=== PATIENT | female | born 1960 | race Caucasian/White ===

== ENCOUNTER 2020-08-25 20:51 | Observation (INO) | payer BC, OTHER ==
[~2020-08-25] VITALS: Ht 160 cm; Wt 56.3 kg
[2020-08-25 20:55] VITALS: BP 153/69
[2020-08-25 21:22] VITALS: BP 135/61
[2020-08-25 21:28] LABS: BASOPHILS % (AUTO) 0.8 % (0.0-5.0); EOSINOPHILS % (AUTO) 1.7 % (0.0-8.0); HEMATOCRIT 41.9 % (36-48); LYMPHOCYTES % (AUTO) 23.8 % (21.0-51.0); MEAN CORPUSCULAR HGB CONC 33.4 g/dL (32.0-36.0); MEAN CORPUSCULAR VOLUME 92.9 fL (79-99); MONOCYTES % (AUTO) 10.6 % (3.0-13.0); NEUTROPHILS % (AUTO) 62.6 % (40.0-77.0); PLATELET COUNT (AUTO) 242 K/uL (130-400); RED BLOOD CELL COUNT(AUTO) 4.51 MIL/uL (4.00-5.50); RED CELL DISTRIBUTION WIDTH 13.2 % (11.0-15.5)
[2020-08-25 21:38] LABS: CREATININE 0.9 mg/dL (0.5-1.5); POTASSIUM 3.5 mmol/L (3.5-5.1)
[2020-08-25 21:40] LABS: INR 0.97 (0.85-1.15); PROTHROMBIN TIME 10.6 SEC (9.6-11.6)
[2020-08-25 21:41] LABS: PARTIAL THROMBOPLASTIN TIME 24.8 SEC (26.3-35.5)
[2020-08-25 21:45] LABS: ALBUMIN 4.4 g/dL (3.5-5.0); BILIRUBIN,TOTAL 0.6 mg/dL (0.2-1.0); TOTAL PROTEIN, SERUM 7.7 g/dL (6.0-8.3)
[2020-08-25 21:56] LABS: B-TYPE NATRIURETIC PEPTIDE 20 pg/mL (0-100)
[2020-08-25 22:39] VITALS: BP 119/71
[2020-08-25 22:43] VITALS: BP 113/65
[2020-08-25] MEDS ORDERED: ASPIRIN 325MG EC TAB PO ONE (23:00)
[2020-08-25] MEDS: 0.9%NACL 1000ML 1,000 ML IV SCH (23:20)
[2020-08-25] MEDS ORDERED: ATORVASTATIN 10 MG TABLET ONE (23:21)
[2020-08-25 23:28] LABS: APPEARANCE,URINE Clear (CLEAR); BILIRUBIN,URINE Negative (NEGATIVE); COLOR,URINE Yellow (YELLOW); GLUCOSE, URINE (UA) Negative (NEGATIVE); KETONES,URINE Negative (NEGATIVE); LEUKOCYTE ESTERASE ,URINE Trace (NEGATIVE); NITRATE,URINE Negative (NEGATIVE); OCCULT BLOOD,URINE Negative (NEGATIVE); PH,URINE 7.5 (5.0-8.0); PROTEIN,URINE Negative (NEGATIVE); UROBILINOGEN,URINE 0.2 mg/dL (0.2-1.0)
[2020-08-25 23:35] LABS: BACTERIA,URINE None Seen /HPF (None Seen); RBC,URINE None Seen /HPF (0-1); SQUAMOUS EPITHELIAL CELL,UR Rare /HPF (0-2); WBC,URINE 0-1 /HPF (0-1)
[2020-08-26] VITALS: BP 123/63
[2020-08-26 04:00] VITALS: BP 148/70
[2020-08-26] MEDS ORDERED: HYDRALAZINE 20MG/ML VIAL IV PRN (07:00)
[2020-08-26 08:05] VITALS: BP 124/71
[2020-08-26] MEDS ORDERED: AEC81 PO (08:54)
[2020-08-26] MEDS ORDERED: TRAZ-185 PO (08:54)
[2020-08-26] MEDS ORDERED: NITR0.4T SL (08:54)
[2020-08-26] MEDS ORDERED: POTASSIUM CHLORIDE 20MEQ/100ML 100 ML IV PRN (09:00)
[2020-08-26] MEDS ORDERED: LACTULOSE 20 GM/30 ML UDCUP PO PRN (09:00)
[2020-08-26] MEDS ORDERED: LIDOCAINE HCL-MPF 1% 2ML VIAL IV PRN (09:00)
[2020-08-26] MEDS ORDERED: MAG/ALUM/SIMETH 30 ML UDCUP PO PRN (09:00)
[2020-08-26] MEDS ORDERED: KCL 20 MEQ ERTAB PO PRN (09:00)
[2020-08-26] MEDS ORDERED: ASPIRIN 325MG EC TAB PO SCH (09:00)
[2020-08-26] MEDS ORDERED: ACETAMINOPHEN 325 MG TAB PO PRN ×2 (09:00)
[2020-08-26] MEDS ORDERED: POTASSIUM CHLORIDE 10% ELIXIR 20 MEQ/15 ML UDCUP PO PRN (09:00)
[2020-08-26] MEDS ORDERED: ONDANSETRON 4MG INJ IV PRN (09:00)
[2020-08-26] MEDS: 0.9%NACL 1000ML 1,000 ML IV SCH (09:51)
[2020-08-26 11:35] VITALS: BP 124/77
[2020-08-26] MEDS ORDERED: ROSU5TAB12 PO (13:49)
[2020-08-26] MEDS ORDERED: ATORVASTATIN 10 MG TABLET PO SCH (21:00)
== END 2020-08-26 17:00 | disposition home or self-care (01) ==
LOC: EDH 20:51 → EDHIP 22:21 → 3AH 08-26 00:02
PROVIDERS: ADMIT Internal Medicine; ATTEND Internal Medicine
DX: R20.2 Paresthesia of skin (principal); H53.129 Transient visual loss, unspecified eye; R47.9 Unspecified speech disturbances; E78.2 Mixed hyperlipidemia; F41.1 Generalized anxiety disorder; I34.0 Nonrheumatic mitral (valve) insufficiency; I07.1 Rheumatic tricuspid insufficiency; R55 Syncope and collapse; G43.109 Migraine with aura, not intractable, without status migrainosus; E86.0 Dehydration; I95.9 Hypotension, unspecified; I63.9 Cerebral infarction, unspecified; R29.701 NIHSS score 1; G51.0 Bell's palsy; Z79.82 Long term (current) use of aspirin; Z86.73 Personal history of transient ischemic attack (TIA), and cerebral infarction without residual deficits
CPT/HCPCS: 36415; 70450; 70551; 71045; 80053; 81001; 82550; 82948; 83880; 84484; 85025; 85610; 85730; 92522; 92610; 93005; 96360; 96361; 99291; G0378 ×8; J7030

== ENCOUNTER → 2023-07-06 | Outpatient (CLI) | payer BC ==
[~2023-07-06] MED LIST: AEC81 PO; NITR0.4T SL; ROSU5TAB43 PO; TRAZ-185 PO
== END | disposition home or self-care (01) ==
LOC: RAH 14:00
PROVIDERS: ATTEND Orthopaedic Surgery
DX: M19.012 Primary osteoarthritis, left shoulder (principal); M25.512 Pain in left shoulder; M25.412 Effusion, left shoulder; M67.814 Other specified disorders of tendon, left shoulder
CPT/HCPCS: 73221

== ENCOUNTER → 2023-11-08 | Outpatient (CLI) | payer BC | END | disposition home or self-care (01) | LOC: SHCH 11:06 | PROVIDERS: ATTEND Internal Medicine Cardiovascular Disease | DX: I08.3 Combined rheumatic disorders of mitral, aortic and tricuspid valves (principal); R01.1 Cardiac murmur, unspecified | CPT/HCPCS: 93306 ==

== ENCOUNTER → 2023-12-04 | Outpatient (CLI) | payer BC | END | disposition home or self-care (01) | LOC: RAH 09:40 | PROVIDERS: ATTEND Physician Assistant | DX: Z01.818 Encounter for other preprocedural examination (principal); M47.815 Spondylosis without myelopathy or radiculopathy, thoracolumbar region; M41.84 Other forms of scoliosis, thoracic region; E78.2 Mixed hyperlipidemia | CPT/HCPCS: 71046 ==